=== PATIENT | female | born 1960 | race Caucasian/White ===

== ENCOUNTER 2024-05-20 18:02 | Emergency (ER) | payer OTHER, MEDICAID ==
[~2024-05-20] VITALS: Ht 167.6 cm; Wt 61.0 kg
[2024-05-20 18:15] VITALS: O2SAT 99
[2024-05-20] MEDS: HYDRALAZINE 20MG/ML VIAL IV ONE (19:22)
[2024-05-20 19:24] LABS: BASOPHILS % 0.6 % (0.0-2.0); HEMATOCRIT. 36.5 % (36.0-48.0); HEMOGLOBIN. 11.7 g/dL (12.0-16.0); LYMPHOCYTES % 50.8 % (20.0-50.0); MEAN CORPUSCULAR HEMOGLOBIN 29.3 pg (28.0-32.0); MEAN CORPUSCULAR HGB CONC 32.2 g/dL (31.0-37.0); MEAN CORPUSCULAR VOLUME 90.9 fL (81.0-99.0); MEAN PLATELET VOLUME 8.5 fl (7.4-10.4); MONOCYTES % 6.6 % (2.0-8.0); PLATELET 308 x1000/uL (130-400); RED BLOOD CELL COUNT 4.01 mill/uL (4.2-5.4); RED CELL DISTRIBUTION WIDTH 13.5 % (11.6-14.6); WHITE BLOOD COUNT 10.7 x1000/uL (4.5-11.0)
[2024-05-20 19:33] LABS: CHLORIDE 102 mEq/L (98-107); POTASSIUM 3.3 mEq/L (3.5-5.1); SODIUM 142 mEq/L (136-145)
[2024-05-20 19:34] LABS: CALCIUM 10.4 mg/dL (8.7-10.4); CARBON DIOXIDE 31 mEq/L (21-32)
[2024-05-20 19:37] LABS: INR 0.9; PROTHROMBIN TIME 10.2 sec (9.6-11.0)
[2024-05-20 19:39] LABS: CREATININE 0.8 mg/dL (0.6-1.0); GLUCOSE 102 mg/dL (70-105); UREA NITROGEN BLOOD 9 mg/dL (9-23)
[2024-05-20 19:40] LABS: TROPONIN I HIGH SENSITIVITY < 4 ng/L (3.0-34)
[2024-05-20 19:41] LABS: ALANINE AMINOTRANSFERASE 17 IU/L (10-49); ALBUMIN 4.7 g/dL (3.2-4.8); ASPARTATE AMINOTRANSFERASE 19 IU/L (<34); BILIRUBIN TOTAL 0.3 mg/dL (0.1-1.0); PROTEIN TOTAL 8.1 g/dL (6.0-8.3)
[2024-05-20 19:43] LABS: BILIRUBIN DIRECT < 0.1 mg/dL (<=3.0)
[2024-05-20] MEDS ORDERED: ASPI-1497 MT (21:35)
[2024-05-20] MEDS: POTASSIUM CHLORIDE 20MEQ/PACKET PO ONE (21:44)
[2024-05-20 22:12] VITALS: BP 161/79; PULSE 79; RESP 16; TEMP 37; O2SAT 99
[2024-05-20] MEDS ORDERED: IOHEXOL-350 100 ML BOTTLE ONE (23:18)
== END 2024-05-20 22:14 | disposition home or self-care (01) ==
LOC: ER 18:02
DX: R20.2 Paresthesia of skin (principal); I16.0 Hypertensive urgency; I10 Essential (primary) hypertension; Z79.82 Long term (current) use of aspirin; Z88.5 Allergy status to narcotic agent
CPT/HCPCS: 80076; 80048; 85025; 85610; 84484; 36415; 70496; 70498; 70450; 93005; 96374; 99285; Q9967; J0360; Z7610 ×2; A4606